=== PATIENT | female | born 2000 | race Caucasian/White ===

== ENCOUNTER 2018-01-26 23:19 | Emergency (ER) | payer OTHER ==
[~2018-01-26] VITALS: Ht 167.6 cm; Wt 107.3 kg
[2018-01-26 23:37] VITALS: Ht 167.6 cm; Wt 107.3 kg
--- NOTE | 2018-01-27 00:09 | EMERGENCY ROOM VISIT NOTE ---
History First contact with patient: 23:41 Chief Complaint: EAR PAIN Stated Complaint: EAR INFECTION History of Present Illness The patient is a 17 year old female who presents to the Emergency Room with complaints of left ear pain and swelling. The patient states she has been having problems with her ear for several months. She states symptoms became significantly worse this week, so she went to [facility] due to swelling around the ear and drainage from the ear canal. The patient reports significantly worsening pain and redness today. She states the swelling has been worsening throughout the week despite being started on Cipro drops 4 days ago. Today, the patient states she had subjective fever and chills and her pain began radiating into her jaw. The patient has been taking ibuprofen for pain and swelling with mild relief in her symptoms. She has not been on any oral antibiotics. She denies any purulent drainage from the ear. She does report some mild muffled hearing in the left ear. Otherwise, the patient states she has not recently been ill. She denies any congestion, rhinorrhea, sore throat, nausea, vomiting, chest pain, dyspnea, or other concerning symptoms. She denies any recent head injury or headache. Review of Systems A complete 10 point review of systems was reviewed with the patient with pertinent positives and negatives as per history of present illness. All else were negative. Social History Smoking Status: Never Smoker Smokeless Tobacco Use: No Alcohol Use: none Drug Use: none Marital Status: single Housing Status: lives with roommate Occupation Status: [employer] Current/Historical Medications Scheduled Amoxicillin & Pot Clavulanate (Augmentin 875-125 mg), 1 TAB PO BID Ciprofloxacin Hcl (Otic) (Ciprofloxacin), UD Physical Exam Vital Signs Date Time Temp Pulse Resp B/P (MAP) Pulse Ox O2 Delivery O2 Flow Rate FiO2 01/27/18 02:03 36.9 111 22 121/87 98 01/27/18 01:31 22 121/87 98 Room Air 01/26/18 23:37 36.9 111 18 145/88 97 Room Air Physical Exam Vital Signs: Reviewed Nurse's notes, vital signs stable. GENERAL: This is a 17 year old white female, in no acute distress, non toxic in appearance, well developed, well nourished. SKIN: Mild edema and erythema surrounding the left ear and posteriorly to the left ear. No ecchymosis. No fluctuance. No drainage noted. No excoriations or trauma. MOUTH: The pharynx is normal in appearance and the tonsils are not enlarged. The airway is patent. There are no exudates over the tonsils. EARS: The left external auditory canal is swollen and inflamed and there is positive tragal tenderness. The tympanic membrane is bulging with effusion. No significant erythema. The right tympanic membrane is pearly jose without erythema or bulging and the external auditory canal is clear. + post-auricular lymphadenopathy on the left NECK: Supple. No Tracheal deviation. No cervical lymphadenopathy. HEART: Regular rate and rhythm without murmurs gallops or rubs. LUNGS: Clear to auscultation bilaterally without wheezes, rales or rhonchi. No dullness to percussion. No accessory muscle use. No retractions. Medical Decision & Procedures ER Provider Diagnostic Interpretation: MASTOIDS-ORB/SELLA/TEMP W/ HISTORY: 17 years-old Female left mastoid pain, fever, recent OM/OE acute pain of the left mastoid region with concern for acute otitis media or otitis externa COMPARISON: None available TECHNIQUE: Multiple axial CT images of the mastoid air cells/temporal bones were obtained following the intravenous administration of 93 mL Optiray 320 IV contrast. A dose lowering technique was used consistent with the principals of ALARA. FINDINGS: Small left mastoid effusion with opacification of several dependent left mastoid air cells on the left demonstrating air-fluid levels. No erosive changes. Additionally, there is a moderate amount of fluid within the left middle ear with moderate soft tissue thickening and enhancement about the left external auditory canal and adjacent soft tissues. Mildly prominent adjacent lymph nodes are likely reactive. No drainable fluid collections. The left parotid gland appears unremarkable. The orbits and imaged intracranial structures appear unremarkable. No abnormal intracranial enhancement. Right mastoid air cells and middle ear cavity appear clear. Mild cerumen about the right external auditory canal. Bilateral semicircular canals and cochlea appear unremarkable. Coarse of the bilateral 7th cranial nerves appear to be within normal limits. No evidence of jugular bulb dehiscence. Normal course of the bilateral petrous segments internal carotid arteries. Bilateral ossicles appear to be intact. Intact normal. The tegmen tympani bilaterally. Sharp scutum noted bilaterally. No definite evidence of cholesteatoma. Mild polypoid mucosal thickening about the left maxillary sinus. Minimal right maxillary sinus disease. Mild mucosal thickening of the ethmoid airways. Moderate bilateral hanna bullosa. IMPRESSION: 1. Trace left mastoid effusion with moderate amount of fluid within the left middle ear cavity. Additionally, there is moderate soft tissue thickening and enhancement about the left external auditory canal and adjacent soft tissues. Findings suggest acute otitis externa with otitis media and possible acute mastoiditis. No erosive changes, acute intracranial involvement or drainable fluid collections. 2. Mild paranasal sinus disease as above with bilateral hanna bullosa. The above report was generated using voice recognition software. It may contain grammatical, syntax or spelling errors. Electronically signed by: Piotr Rivera M.D. 01/27/2018 8:18 AM Dictated Date/Time: 01/27/2018 8:10 AM Laboratory Results 01/27/18 00:00 Red Blood Count 4.90, Mean Corpuscular Volume 83.7, Mean Corpuscular Hemoglobin 28.4, Mean Corpuscular Hemoglobin Concent 33.9, Mean Platelet Volume 10.7, Neutrophils (%) (Auto) 67.5, Lymphocytes (%) (Auto) 21.5, Monocytes (%) (Auto) 8.7, Eosinophils (%) (Auto) 1.9, Basophils (%) (Auto) 0.2, Neutrophils # (Auto) 7.50, Lymphocytes # (Auto) 2.38, Monocytes # (Auto) 0.96, Eosinophils # (Auto) 0.21, Basophils # (Auto) 0.02 01/27/18 00:00 Test 01/27/18 00:00 01/27/18 00:09 White Blood Count 11.09 K/uL (4.8-10.8) Red Blood Count 4.90 M/uL (4.2-5.4) Hemoglobin 13.9 g/dL (12.0-16.0) Hematocrit 41.0 % (37-47) Mean Corpuscular Volume 83.7 fL (80-100) Mean Corpuscular Hemoglobin 28.4 pg (25-34) Mean Corpuscular Hemoglobin Concent 33.9 g/dl (32-36) Platelet Count 336 K/uL (130-400) Mean Platelet Volume 10.7 fL (7.4-10.4) Neutrophils (%) (Auto) 67.5 % Lymphocytes (%) (Auto) 21.5 % Monocytes (%) (Auto) 8.7 % Eosinophils (%) (Auto) 1.9 % Basophils (%) (Auto) 0.2 % Neutrophils # (Auto) 7.50 K/uL (1.4-6.5) Lymphocytes # (Auto) 2.38 K/uL (1.2-3.4) Monocytes # (Auto) 0.96 K/uL (0.11-0.59) Eosinophils # (Auto) 0.21 K/uL (0-0.5) Basophils # (Auto) 0.02 K/uL (0-0.2) RDW Standard Deviation 44.9 fL (36.4-46.3) RDW Coefficient of Variation 14.5 % (11.5-14.5) Immature Granulocyte % (Auto) 0.2 % Immature Granulocyte # (Auto) 0.02 K/uL (0.00-0.02) Est Creatinine Clear Calc Drug Dose 151.5 ml/min Estimated GFR () 136.1 Estimated GFR (Non- 117.4 BUN/Creatinine Ratio 14.9 (10-20) Calcium Level 8.7 mg/dl (8.5-10.1) Bedside Hemoglobin 13.9 g/dl (12.0-16.0) Bedside Hematocrit 41 % (37-47) Bedside Sodium 143 mEq/L (135-144) Bedside Potassium 3.7 mEq/L (3.3-5.0) Bedside Chloride 105 mEq/L (101-112) Bedside Total CO2 23 mEq/l (24-31) Anion Gap 19.0 mmol/L (16-25) Bedside Blood Urea Nitrogen 10 mg/dl (7-18) Bedside Creatinine 0.7 mg/dl Bedside Glucose (other) 109 mg/dl (70-99) Bedside Ionized Calcium (Jenn) 1.09 mmol/l Medications Administered Medications (Trade) Dose Ordered Sig/Waqar Route Start Time Stop Time Status Last Admin Dose Admin Ampicillin Sodium/ Sulbactam Sodium 3000 mg/Sodium Chloride 108 ml @ 200 mls/hr ONE STAT IV 01/27/18 01:14 01/27/18 01:46 DC 01/27/18 01:14 200 MLS/HR Amoxicillin/ Clavulanate Potassium (Augmentin 875MG Home Pack) 1 homepack UD ONCE PO 01/27/18 01:15 01/27/18 01:16 DC 01/27/18 01:[address] [facility] ED Course The patient was seen and evaluated as above. IV access obtained, labs drawn. Imaging performed and reviewed by myself and radiologist as above. Labs reviewed by myself. I discussed the findings with the patient at bedside. I discussed the case with my attending. I did consult with Dr. Dickson regarding the findings and patient condition. He recommended IV antibiotics here in the ED with discharge home on PO antibiotics and follow-up Sunday or Sunday outpatient in the office. The patient was given 3g IV Unasyn. Discharge instructions reviewed, the patient was discharged home in good condition. Medical Decision This is a 17-year-old female patient who presents to the emergency department today complaining of several month long history of left otalgia. The patient states she recently noticed worsening symptoms so went to [facility] where she was diagnosed with otitis externa. She was started on Cipro drops. Symptoms have been progressively worsening over the past 3-4 days, today she experienced body aches, chills, and subjective fever. She presents emergency department when she noticed erythema and edema over the mastoid. Examination is concerning for possible early mastoiditis, so labs and imaging performed. Labs [place] [id number]. No anemia or thrombocytopenia. Renal function and electrolytes without significant abnormality. CT scan was concerning for possible early acute mastoiditis. I did consult with Dr. Dickson as above. The patient was treated in the ED with IV Unasyn and encouraged to follow-up closely outpatient. She was given strict return precautions. Differential diagnosis includes trauma, mastoiditis, otitis media with perforation, otitis externa, chondritis, intracranial abscess, mastoiditis, [place] syndrome, osteomyelitis, cerumen impaction, atopic dermatitis, exostosis, osteoma, foreign body, myringitis, cranial nerve palsy, malignancy, and others The chart was completed utilizing [employer] voice recognition software. Grammatical errors, random word insertions, pronoun errors, and incomplete sentences are an occasional consequence of this system due to software limitations, ambient noise, and hardware issues. Any formal questions or concerns about the content, text, or information contained within the body of this dictation should be directly addressed to the provider for clarification. Medication Reconcilliation Current Medication List: was personally reviewed by me Blood Pressure Screening Patient's blood pressure: Normal blood pressure Impression Primary Impression: Acute otitis media Additional Impression: Otitis externa Departure Information Dispostion Home / Self-Care Condition GOOD Prescriptions Amoxicillin & Pot Clavulanate (Augmentin 875-125 mg) 1 Tab Tab 1 TAB PO BID for 10 Days, #20 TAB Prov: Lesly Coppola PA-C 01/27/18 Referrals [facility] (PCP) Dl Dickson D.O. Patient Instructions ED Otitis Media Acute Adult, My [facility] Additional Instructions You have been treated in the Emergency Department for an Inner Ear Infection ( Otitis Media) with concern for possible mastoiditis. You were given a dose of Unasyn in the emergency Department. You were prescribed Augmentin to be taken twice daily x10 days. This is an antibiotic. All antibiotics have the potential to cause diarrhea. Stop this medication and contact a medical provider if you were to develop any significant adverse side effects including: wheezing, shortness of breath, passing out, vomiting, or a diffuse rash. Always take antibiotics as directed and COMPLETE the ENTIRE course regardless of the improvement of your symptoms. A wick was placed in the left ear. Leave this in place and use the Cipro drops you had been previously prescribed as directed. For pain and fever control, you can use the following [id number] medicines (if >12 yo): Ibuprofen(Motrin, Advil) may be used for fever or pain. Use 600mg every six hours as needed. Take with food. Avoid using more than 2400mg in a 24 hour period. Do not use 2400mg per day for more than three consecutive days without physician direction. Prolonged inappropriate use can lead to stomach upset or ulcers. (AND/OR) Acetaminophen(Tylenol) may be used for fever or pain. Use 1000mg every six hours as needed. Avoid using more than 3000mg in a 24 hour period. You must follow-up with ENT on Sunday or Sunday from today's Emergency Department visit. Contact their office on Sunday morning. You were provided with the contact information. Inform them that you were seen in the emergency department tonight and that Dr. Dickson was contacted and advised to follow-up Sunday or Sunday. Return to the emergency department if you develop the following symptoms despite treatment course outlined above: headache, fever, intractable pain, increased redness, swelling, or purulent discharge. Problem Qualifiers Primary Impression: Acute otitis media Otitis media type: suppurative Laterality: left Recurrence: not specified as recurrent Spontaneous tympanic membrane rupture: without spontaneous rupture Qualified Codes: H66.002 - Acute suppurative otitis media without spontaneous rupture of ear drum, left ear Additional Impression: Otitis externa Otitis externa type: other infective Chronicity: acute Laterality: left Qualified Codes: H60.392 - Other infective otitis externa, left ear
[2018-01-27 00:10] LABS: BASO % 0.2 %; BASO ABS # 0.02 K/uL (0-0.2); EOS % 1.9 %; EOS ABS # 0.21 K/uL (0-0.5); HEMOGLOBIN 13.9 g/dL (12.0-16.0); IG# 0.02 K/uL (0.00-0.02); LYMPH % 21.5 %; LYMPH ABS # 2.38 K/uL (1.2-3.4); MEAN CELL VOLUME 83.7 fL (80-100); MEAN CORPUSCULAR HEMOGLOBIN 28.4 pg (25-34); MEAN CORPUSCULAR HGB CONC 33.9 g/dl (32-36); MEAN PLATELET VOLUME 10.7 fL (7.4-10.4); MONO % 8.7 %; MONO ABS # 0.96 K/uL (0.11-0.59); NEUT % 67.5 %; PLATELET COUNT 336 K/uL (130-400); RED CELL DISTRIBUTION WIDTH CV 14.5 % (11.5-14.5); RED CELL DISTRIBUTION WIDTH SD 44.9 fL (36.4-46.3); WHITE BLOOD COUNT 11.09 K/uL (4.8-10.8)
[2018-01-27] MEDS ORDERED: OPTIRAY 320 IV PRN (00:15)
[2018-01-27 00:18] LABS: ISTAT CREATININE 0.7 mg/dl; ISTAT IONIZED CALCIUM 1.09 mmol/l; ISTAT POTASSIUM 3.7 mEq/L (3.3-5.0)
[2018-01-27 00:27] LABS: CALCIUM 8.7 mg/dl (8.5-10.1); CREATININE 0.74 mg/dl (0.60-1.20); POTASSIUM 3.7 mmol/L (3.5-5.1)
[2018-01-27] MEDS ORDERED: AMPICILLIN/SULBACTAM SOD INJ 3,000 MG in SODIUM CHLORIDE 0.9% 100ML 100 ML IV STA (01:14)
[2018-01-27] MEDS ORDERED: AMOXICIL/CLAVU 875MG HOME PACK PO ONE (01:15)
[2018-01-27] MEDS ORDERED: [UNRECOGNIZED DRUG - CODE] (01:21)
[2018-01-27] MEDS ORDERED: AMOX875T PO (01:24)
[2018-01-27 02:03] VITALS: BP 121/87; PULSE 111; TEMP 36.9; O2SAT 98
--- NOTE | 2018-01-27 08:20 | DIAGNOSTIC IMAGING REPORT ---
MASTOIDS-ORB/SELLA/TEMP W/ HISTORY: 17 years-old Female left mastoid pain, fever, recent OM/OE acute pain of the left mastoid region with concern for acute otitis media or otitis externa COMPARISON: None available TECHNIQUE: Multiple axial CT images of the mastoid air cells/temporal bones were obtained following the intravenous administration of 93 mL Optiray 320 IV contrast. A dose lowering technique was used consistent with the principals of DEB. FINDINGS: Small left mastoid effusion with opacification of several dependent left mastoid air cells on the left demonstrating air-fluid levels. No erosive changes. Additionally, there is a moderate amount of fluid within the left middle ear with moderate soft tissue thickening and enhancement about the left external auditory canal and adjacent soft tissues. Mildly prominent adjacent lymph nodes are likely reactive. No drainable fluid collections. The left parotid gland appears unremarkable. The orbits and imaged intracranial structures appear unremarkable. No abnormal intracranial enhancement. Right mastoid air cells and middle ear cavity appear clear. Mild cerumen about the right external auditory canal. Bilateral semicircular canals and cochlea appear unremarkable. Coarse of the bilateral 7th cranial nerves appear to be within normal limits. No evidence of jugular bulb dehiscence. Normal course of the bilateral petrous segments internal carotid arteries. Bilateral ossicles appear to be intact. Intact normal. The tegmen tympani bilaterally. Sharp scutum noted bilaterally. No definite evidence of cholesteatoma. Mild polypoid mucosal thickening about the left maxillary sinus. Minimal right maxillary sinus disease. Mild mucosal thickening of the ethmoid airways. Moderate bilateral hanna bullosa. IMPRESSION: 1. Trace left mastoid effusion with moderate amount of fluid within the left middle ear cavity. Additionally, there is moderate soft tissue thickening and enhancement about the left external auditory canal and adjacent soft tissues. Findings suggest acute otitis externa with otitis media and possible acute mastoiditis. No erosive changes, acute intracranial involvement or drainable fluid collections. 2. Mild paranasal sinus disease as above with bilateral hanna bullosa. The above report was generated using voice recognition software. It may contain grammatical, syntax or spelling errors. Electronically signed by: Piotr Rivera M.D. 01/27/2018 8:18 AM Dictated Date/Time: 01/27/2018 8:10 AM
== END 2018-01-27 02:04 | disposition home or self-care (01) ==
LOC: C.EDB 23:20 → C.EDC 01-27 02:04
DX: H66.002 Acute suppurative otitis media without spontaneous rupture of ear drum, left ear (principal); H60.392 Other infective otitis externa, left ear